=== PATIENT | female | born 1950 | race Caucasian/White ===

== ENCOUNTER → 2017-08-20 | Outpatient (CLI) | payer MEDICARE, OTHER ==
[~2017-08-20] MED LIST: BENICAR40 MG PO; CALCIUM 600600 M2 PO; COUMADIN 77.5 MG/TAB PO; CRESTOR40 MG PO; FOLIC ACID 11 MG/TA1 PO; HYDRODIURIL PO; IMDUR 30MG30 MG/TAB PO; METHOTREXA2.5 MG/TAB PO; MOBIC15 MG PO; NORCO 325 MG-51 TAB PO; PERCOCET 325 MG1 TA2 PO; PHENOBARBITAL100 MG PO; SYNTHROID0.175 MG PO; VITAMIN D31000 IU PO; ZOLOFT 100MG100 MG PO
== END ==
LOC: COL.RAD 08:59
DX: M25.512 Pain in left shoulder (principal)
CPT/HCPCS: J3301; Q9967

== ENCOUNTER 2018-11-21 21:15 | Emergency (ER) | payer MEDICARE, OTHER ==
[~2018-11-21] VITALS: Ht 160 cm; Wt 81.8 kg
[2018-11-21 21:23] VITALS: BP 211/95; TEMP 97.1
[2018-11-21] MEDS ORDERED: PHENOBARBITAL97.2 MG PO (21:32)
[2018-11-21] MEDS ORDERED: ASPIRIN 81M81 MG/TA2 PO (21:33)
[2018-11-21] MEDS ORDERED: CRESTOR40 MG PO (21:33)
[2018-11-21] MEDS ORDERED: ZOLOFT 100MG100 MG PO (21:33)
[2018-11-21] MEDS ORDERED: SYNTHROID 0.10.15 MG PO (21:34)
[2018-11-21] MEDS ORDERED: AVAPRO300 M1 PO (21:35)
[2018-11-21] MEDS ORDERED: IMDUR 60MG60 MG/TAB PO (21:36)
[2018-11-21] MEDS ORDERED: NORCO 325 MG-51 TAB PO (22:41)
[2018-11-21 23:06] VITALS: PULSE 77
[2018-11-24] MEDS ORDERED: NORCO 325 MG-7.1 TAB PO (20:11)
== END 2018-11-21 23:06 | disposition home or self-care (01) ==
LOC: COL.ER 21:15
DX: S52.502A Unspecified fracture of the lower end of left radius, initial encounter for closed fracture (principal); S52.602A Unspecified fracture of lower end of left ulna, initial encounter for closed fracture; R56.9 Unspecified convulsions; I10 Essential (primary) hypertension; M06.9 Rheumatoid arthritis, unspecified; Z96.659 Presence of unspecified artificial knee joint; Z79.82 Long term (current) use of aspirin; W18.09XA Striking against other object with subsequent fall, initial encounter; Y92.009 Unspecified place in unspecified non-institutional (private) residence as the place of occurrence of the external cause
CPT/HCPCS: Q4021